=== PATIENT | female | born 1950 | race Caucasian/White ===

== ENCOUNTER 2019-06-01 14:54 | Emergency (ER) | payer MEDICARE ==
[~2019-06-01] VITALS: Ht 160 cm; Wt 81.0 kg
[~2019-06-01 14:54] MED LIST: ALB0.5UD IH; ATEN-169 PO; CLIN-90 PO; FLUT1DIS4 INH; HYDR-3965 PO; LEVO100T PO; LORA-512 PO; METF1000 PO; [UNRECOGNIZED DRUG - CODE] PO
[2019-06-01 15:31] LABS: BASOPHILS # (AUTO) 0.1 X10'3 (0-0.2); BASOPHILS % (AUTO) 0.7 % (0-1); EOSINOPHILS # (AUTO) 0.1 X10'3 (0-0.9); EOSINOPHILS % (AUTO) 1.4 % (0-6); HEMATOCRIT 43.5 % (35.0-45.0); HEMOGLOBIN 14.6 g/dl (12.0-16.0); LYMPHOCYTES % (AUTO) 21.2 % (21-51); MEAN CORPUSCULAR HEMOGLOBIN 29.1 PG (27.0-31.0); MEAN CORPUSCULAR HGB CONC 33.6 g/dL (33.0-36.5); MEAN CORPUSCULAR VOLUME 86.6 FL (78-98); MEAN PLATELET VOLUME 8.8 FL (7.4-10.4); MONOCYTES # (AUTO) 0.8 X10'3 (0-0.9); MONOCYTES % (AUTO) 8.4 % (2-12); NEUTROPHILS # (AUTO) 6.4 X10'3 (1.8-7.7); NEUTROPHILS % (AUTO) 68.3 % (42-75); PLATELET COUNT 260 X10'3 (140-440); RED BLOOD COUNT 5.02 X10'6 (4.20-5.60); RED CELL DISTRIBUTION WIDTH 14.9 % (11.5-14.5); WHITE BLOOD COUNT 9.4 X10'3 (4.5-11.0)
[2019-06-01 15:45] LABS: PARTIAL THROMBOPLASTIN TIME 28 SECONDS (22-32)
[2019-06-01 15:56] LABS: ALANINE AMINOTRANSFERASE 35 U/L (12-78); ALBUMIN 3.5 G/DL (3.4-5.0); ALBUMIN/GLOBULIN RATIO 0.9 (1.1-1.5); ALKALINE PHOSPHATASE 69 IU/L (46-116); ANION GAP 7 (8-16); ASPARTATE AMINO TRANSFERASE 20 U/L (10-37); BILIRUBIN,TOTAL 0.4 MG/DL (0.1-1.0); BLOOD UREA NITROGEN 8 MG/DL (7-18); BUN/CREATININE RATIO 8.6 (6.6-38.0); CALCIUM 9.1 MG/DL (8.5-10.1); CHLORIDE 104 MMOL/L (99-107); CREATININE 0.93 MG/DL (0.40-0.90); GLUCOSE 164 MG/DL (70-104); MAGNESIUM 1.9 MG/DL (1.5-2.4); POTASSIUM 4.1 MMOL/L (3.5-5.1); SODIUM 141 MMOL/L (135-145); TOTAL PROTEIN 7.4 G/DL (6.4-8.2); eGFR 60 ML/MIN
[2019-06-01] MEDS ORDERED: predniSONE 20 mg tablet PO ONE (16:05)
[2019-06-01] MEDS ORDERED: albuterol 2.5 MG/3 ML nebule CONTNEB PRN (16:05)
[2019-06-01] MEDS ORDERED: azithromycin 250mg tablet PO ONE (16:05)
--- NOTE | 2019-06-01 18:05 | NUR ---
PATIENT C/O CP, HEAVINESS EPIGASTRIC, RADUATING TO BACK, DR GONCALVES INFORMED, STAT EKG DONE, RIGHT AC PIV INSERTED 20 G, VSS, SR
[2019-06-01] MEDS ORDERED: aspirin 81mg tab.chew PO ONE (18:20)
--- NOTE | 2019-06-01 18:26 | NUR ---
TALKING WITH PATIENT ABOUT FISHING APPEARS TO HAVE CALMED HER
[2019-06-01 19:00] VITALS: BP 137/70
--- NOTE | 2019-06-01 19:11 | NUR ---
PROVIDED WHOLE MILK 240 ML AND STORMY FAY
[2019-06-01] MEDS ORDERED: PRED20TA PO (19:16)
[2019-06-01] MEDS ORDERED: ALBU6.7H9 INH (19:16)
[2019-06-01] MEDS ORDERED: AZIT-63 PO (19:23)
== END 2019-06-01 19:34 | disposition home or self-care (01) ==
LOC: ER 14:55
DX: J20.9 Acute bronchitis, unspecified (principal); F41.9 Anxiety disorder, unspecified; I10 Essential (primary) hypertension; J44.9 Chronic obstructive pulmonary disease, unspecified; E11.9 Type 2 diabetes mellitus without complications; E03.9 Hypothyroidism, unspecified; G89.29 Other chronic pain; Z98.890 Other specified postprocedural states; Z88.8 Allergy status to other drugs, medicaments and biological substances; Z88.1 Allergy status to other antibiotic agents; Z88.6 Allergy status to analgesic agent; Z79.2 Long term (current) use of antibiotics; Z79.899 Other long term (current) drug therapy
CPT/HCPCS: 36415; 71046; 80053; 83605; 83735; 83880; 84484; 85025; 85610; 85730; 87040; 87502; 87503; 93005; 94644; 99285; J7512; 94640; 94760

== ENCOUNTER 2021-11-12 11:34 | Emergency (ER) | payer MEDICARE ==
[~2021-11-12] VITALS: Ht 157.5 cm; Wt 82.0 kg
[~2021-11-12 11:34] MED LIST changes: +ALBU6.7H9 INH; -CLIN-90 PO; +CLIN-97 PO
[2021-11-12 11:49] VITALS: BP 122/82
[2021-11-12] MEDS ORDERED: morphine 4 MG/ML inj SYRINge IV PRN (13:25)
[2021-11-12] MEDS ORDERED: ondansetron/PF 4mg/2ml inj IV ONE (13:25)
[2021-11-12] MEDS ORDERED: diazepam inj 5 MG/ML inj. IV ONE (13:50)
[2021-11-12 14:08] LABS: ALANINE AMINOTRANSFERASE 27 U/L (12-78); ALBUMIN 3.7 G/DL (3.4-5.0); ALBUMIN/GLOBULIN RATIO 1.1 (1.1-1.5); ALKALINE PHOSPHATASE 102 IU/L (46-116); ANION GAP 9 (8-16); ASPARTATE AMINO TRANSFERASE 22 U/L (10-37); BILIRUBIN,TOTAL 0.3 MG/DL (0.1-1.0); BLOOD UREA NITROGEN 10 MG/DL (7-18); BUN/CREATININE RATIO 10.2 (6.6-38.0); CALCIUM 8.9 MG/DL (8.5-10.1); CHLORIDE 106 MMOL/L (99-107); CREATININE 0.98 MG/DL (0.40-0.90); GLUCOSE 113 MG/DL (70-104); LIPASE 330 U/L (73-393); POTASSIUM 4.4 MMOL/L (3.5-5.1); SODIUM 141 MMOL/L (135-145); TOTAL CARBON DIOXIDE 26.3 MMOL/L (24-32); TOTAL PROTEIN 7.2 G/DL (6.4-8.2); eGFR 56 ML/MIN
[2021-11-12 14:10] LABS: BASOPHILS % (AUTO) 0.6 % (0-1); EOSINOPHILS # (AUTO) 0.1 X10'3 (0-0.9); EOSINOPHILS % (AUTO) 0.7 % (0-6); HEMATOCRIT 41.6 % (35.0-45.0); HEMOGLOBIN 13.7 g/dl (12.0-16.0); LYMPHOCYTES # (AUTO) 2.1 X10'3 (1.1-4.8); LYMPHOCYTES % (AUTO) 26.7 % (21-51); MEAN CORPUSCULAR HGB CONC 32.9 g/dL (33.0-36.5); MEAN CORPUSCULAR VOLUME 82.1 FL (78-98); MEAN PLATELET VOLUME 8.6 FL (7.4-10.4); MONOCYTES # (AUTO) 0.7 X10'3 (0-0.9); MONOCYTES % (AUTO) 8.8 % (2-12); NEUTROPHILS # (AUTO) 4.8 X10'3 (1.8-7.7); NEUTROPHILS % (AUTO) 63.2 % (42-75); PLATELET COUNT 249 X10'3 (140-440); RED BLOOD COUNT 5.06 X10'6 (4.20-5.60); RED CELL DISTRIBUTION WIDTH 15.3 % (11.5-14.5); WHITE BLOOD COUNT 7.7 X10'3 (4.5-11.0)
[2021-11-12 14:17] LABS: CLARITY,URINE CLEAR (Clear); COLOR,URINE YELLOW (Yellow); GLUCOSE, URINE NEGATIVE (Neg); KETONES,URINE NEGATIVE (Neg); LEUKOCYTE ESTERASE ,URINE NEGATIVE (Neg); NITRITES, URINE NEGATIVE (Neg); OCCULT BLOOD,URINE NEGATIVE (Neg); PROTEIN,URINE NEGATIVE (Neg); UROBILINOGEN,URINE 0.2 E.U/dL (0.2-1.0)
[2021-11-12 14:19] LABS: UA COLLECTION TYPE CLN CATCH MIDSTREAM
[2021-11-12] MEDS ORDERED: TRAM50TA2 PO (14:33)
[2021-11-12] MEDS ORDERED: traMADol 50MG tablet PO ONE (15:15)
== END 2021-11-12 18:37 | disposition home or self-care (01) ==
LOC: ER 11:34
DX: R10.9 Unspecified abdominal pain (principal); R07.81 Pleurodynia
CPT/HCPCS: 36415; 74176; 80053; 81003; 83690; 85025; 85610; 96374; 96375; 99284; J2405; J3360

== ENCOUNTER 2024-11-17 11:58 | Outpatient (CLI) | payer MEDICARE ==
[~2024-11-17 11:58] MED LIST changes: +ALBU6.7H14 INH; -ALBU6.7H9 INH; +[UNRECOGNIZED DRUG - CODE] PO; -[UNRECOGNIZED DRUG - CODE] PO
--- NOTE | 2024-11-17 13:54 | RADIOLOGY REPORT ---
EXAM: CT CT LUMBAR SPINE HISTORY: RADICULOPATHY, LUMBAR REGION COMPARISON: None CTDIvol 34 mGy, DLP 1197 mGy*cm. TECHNIQUE: Multiple axial CT images of the spine were obtained using bone algorithm. Axial and goldstein l reformatting was done. Bone and soft tissue windows were reviewed. FINDINGS: No evidence of definite acute fracture, spinal dislocation, or significant appearing acute subluxatio n is seen. Diverticulosis. Moderate canal stenosis at L3-L4. Moderate to severe canal stenosis at L4-L5. Moderate bilateral foraminal stenosis at L4-L5. Severe canal stenosis at L5-S1. Degenerative disc space narrowing at L5-S1. IMPRESSION: No definite CT evidence of acute fracture or dislocation of the bony lumbar spine.
== END 2024-11-17 23:59 | disposition home or self-care (01) ==
LOC: RAD 11:58
PROVIDERS: ATTEND Physician Assistant Medical
DX: M48.07 Spinal stenosis, lumbosacral region (principal); M47.814 Spondylosis without myelopathy or radiculopathy, thoracic region; M54.6 Pain in thoracic spine; M40.204 Unspecified kyphosis, thoracic region; M54.16 Radiculopathy, lumbar region; M62.830 Muscle spasm of back
CPT/HCPCS: 72131